=== PATIENT | male | born 1990 | race Caucasian/White ===

== ENCOUNTER → 2022-02-21 | Outpatient (CLI) | payer SELFPAY ==
[2022-02-21 12:46] LABS: Absolute Lymphocyte Count 1.58 X10^3/uL (0.83-4.51); Absolute Neutrophil Count 4.1 X10^3/uL (2.0-7.7); Basophil# 0.03 X10^3/uL; Basophil% 0.5 % (0-1); Eosinophils% 3.1 % (0-5); Hematocrit 45.9 % (40-54); Hemoglobin 15.3 g/dL (13.0-16.5); Lymphocyte # 1.58 X10^3/ul (0.83-4.51); Lymphocyte % 24.6 % (19-41); Mean Corp Hgb Conc 33.3 g/dL (32-36); Mean Corpuscular Hgb 29.8 pg (27.0-32.0); Mean Corpuscular Volume 89.3 fL (80-94); Mean Platelet Vol. 9.6 fl (6.2-12.0); Monocyte% 7.8 % (0-10); NRBC Flagged by Analyzer 0 % (0-5); Neutrophil # 4.07 X10^3/uL (2.7-7.7); Neutrophil % 63.5 % (47-70); Platelet Count 261 K/mm3 (150-450); RBC Distribution Width CV 12.6 % (11.6-14.6); RBC Distribution Width SD 41.5 fl (35.1-43.9); Red Blood Count 5.14 M/mm3 (4.6-6.2); White Blood Count 6.4 K/mm3 (4.4-11.0)
[2022-02-21 13:06] LABS: Hemoglobin A1c 5.1 % (3.8-5.6)
[2022-02-21 13:10] LABS: ALB/GLOB Ratio 1.3 RATIO (0.9-2.4); AST(SGOT) 19 U/L (15-37); Alanine Aminotransfer ALT/SGPT 37 U/L (16-61); Albumin, Serum 4.4 g/dL (3.2-5.0); Alkaline Phosphatase 76 U/L (45-117); Anion Gap 6 (5-15); BUN 12 mg/dL (7-18); BUN/Creat Ratio 12.5 RATIO (10-20); Calcium,Total 9.4 mg/dL (8.5-10.1); Chloride 105 mmol/L (98-107); Cholesterol 218 mg/dL (200); Creatinine, Serum 0.96 mg/dL (0.70-1.30); EST Glomerular Filtration Rate 96 mL/min (>60); Est Glom Filt Rate - Afr Amer 116 mL/min (>60); Globulin 3.3 g/dL (2.2-4.2); Glucose 86 mg/dL (74-106); High Density Lipoprotein 47 mg/dL; Potassium 4.4 mmol/L (3.5-5.1); Protein, Total 7.7 g/dL (6.4-8.2); Sodium Level 140 mmol/L (136-145); Triglycerides 132 mg/dL; Very Low Density Lipoprotein 26 mg/dL (5-40)
== END | disposition home or self-care (01) ==
PROVIDERS: Internal Medicine
DX: Z00.00 Encounter for general adult medical examination without abnormal findings (principal); Z13.220 Encounter for screening for lipoid disorders; Z13.1 Encounter for screening for diabetes mellitus
CPT/HCPCS: 36415; 80053; 80061; 83036; 85025

== ENCOUNTER → 2024-06-07 | Outpatient (CLI) | payer BC, SELFPAY | END | disposition home or self-care (01) | LOC: LABSPEC 12:55 | PROVIDERS: PCP Internal Medicine; Referring Provider Physician Assistant Surgical; Visit Provider Physician Assistant Surgical | DX: R30.0 Dysuria (principal) | CPT/HCPCS: 87086; 87088; 87186 ==

== ENCOUNTER → 2024-08-21 | Outpatient (CLI) | payer BC, SELFPAY ==
[2024-08-21 17:03] LABS: Hemoglobin A1c 5.4 % (<=5.6)
[2024-08-21 18:10] LABS: ALB/GLOB Ratio 1.8 RATIO (0.9-2.4); AST(SGOT) 38 U/L (<=37); Alanine Aminotransfer ALT/SGPT 51 U/L (<=46); Albumin, Serum 4.8 g/dL (3.5-5.0); Alkaline Phosphatase 77 U/L (40-129); Anion Gap 14 (5-15); BUN 9 mg/dL (4-19); BUN/Creat Ratio 9.3 RATIO (10-20); Calcium,Total 9.9 mg/dL (7.6-11.0); Chloride 100 mmol/L (98-108); Cholesterol 279 mg/dL (<=200); Creatinine, Serum 0.97 mg/dL (0.70-1.20); EST Glomerular Filtration Rate 105 (>60); Globulin 2.7 g/dL (2.2-4.2); Glucose 83 mg/dL (70-99); High Density Lipoprotein 44 mg/dL; Low Density Lipoprotein Calc. 185 mg/dL; Potassium 4.1 mmol/L (3.3-5.1); Protein, Total 7.5 g/dL (5.9-8.4); Sodium Level 137 mmol/L (133-145); Total Bilirubin 0.42 mg/dL (0.00-1.30); Triglycerides 250 mg/dL; Very Low Density Lipoprotein 50 mg/dL (5-40); cholesterol:hdl ratio screen 6.38
[2024-08-21 18:18] LABS: Vitamin B12 620 pg/mL (180-914); Vitamin D,25 Hydroxy 21.4 ng/mL (30-100)
[2024-08-23 05:07] LABS: Insulin Level 20.2 uIU/mL (2.6-24.9)
== END | disposition home or self-care (01) ==
LOC: BIMLAB 16:15
PROVIDERS: PCP Internal Medicine; Referring Provider Internal Medicine; Visit Provider Internal Medicine
DX: Z00.00 Encounter for general adult medical examination without abnormal findings (principal); E88.819 Insulin resistance, unspecified; R73.9 Hyperglycemia, unspecified; Z13.220 Encounter for screening for lipoid disorders; E53.8 Deficiency of other specified B group vitamins; E55.9 Vitamin D deficiency, unspecified
CPT/HCPCS: 36415; 80053; 80061; 82306; 82607; 83036; 83525; 84443

== ENCOUNTER 2024-09-24 17:30 | Outpatient (RCR) | payer BC, SELFPAY ==
--- NOTE | 2024-09-03 16:21 | HP.PTEVAL ---
Patient's Visit Information Visit Information Visit Information: CHUY CERVANTES is a 34 year old M referred to Physical Therapy by Dr. Krystin Jurado MD with a diagnosis of LOW BACK PAIN. 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 Patient has had lumbar pain for ~ 1 year. Patient symptoms have been more intermittent for the past year 3-4 week worse past several months. Seen DR recommend PT and no imaging or medication. Aggravating lifting ,bending sitting. Alleviating walking/standing. c/o parestehesia/tingling in back. Coughing/sneezing-. Bowel/bladder- . Sleeping good at night . Patient was active working out but as late. No injury and/or trauma. Patient condition affects QOL and function with recurrent symptoms. To eliminate symptoms. 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 Back: Pain Intensity (Out of 10): 1 Pain Intensity Range: 10 Objective Objective: POSTURE: mild forward posture GAIT: reciprocal pattern NEURO: denies paresthesia/tingling ,reflexes L3-4,L4-5,L5-S1 1/3 PALAPTION: UNREMARKABLE FLEXABILITY: min tight LUMBAR ROM: flexion min loss ,extension min loss ,side glides min loss MMT: quads/hams/hip/ankle 5/5 Special Tests L/S Slump test left side: Negative L/S Slump test right side: Negative L/S Left Straight Leg Raise: Negative L/S Right Straight Leg Raise: Negative Lumbar Standing: Flexion - Mechanical Response: No effect Lumbar Standing: Flexion - Symptoms During Testing: Increases Lumbar Standing: Flexion - Symptoms After Testing: No worse Lumbar Standing: Extension - Mechanical Response: No effect Lumbar Standing: Extension - Symptoms During Testing: Increases Lumbar Standing: Extension - Symptoms After Testing: No worse Lumbar Standing: Right Side Glides - Mechanical Response: No effect Lumbar Standing: Right Side Buckner - Symptoms During Testing: No effect Lumbar Standing: Right Side Buckner - Symptoms After Testing: No effect Lumbar Standing: Left Side Buckner - Mechanical Response: No effect Lumbar Standing: Left Side Buckner - Symptoms During Testing: No effect Lumbar Standing: Left Side Buckner - Symptoms After Testing: No effect Lumbar Lying: Flexion - Mechanical Response: No effect Lumbar Lying: Flexion - Symptoms During Testing: No effect Lumbar Lying: Flexion - Symptoms After Testing: No effect Lumbar Lying: Extension - Mechanical Response: No effect Lumbar Lying: Extension - Symptoms During Testing: Decreases Lumbar Lying: Extension - Symptoms After Testing: Better Balance/Special Test Scores Oswestry Low Back Score: 21 Goals Goal 1:: Patient to be I with HEP for back Goal Time Frame: 4-6 Weeks Goal 2:: Patient to decrease back pain by 75% to improve function and job demands Goal Time Frame: 4-6 Weeks Goal 3:: Patient to improve lumbar ROM for function of recovery for lifting Goal Time Frame: 4-6 Weeks Goal 4:: Patient to improve back oswestry by 5 points to improve QOL and function Goal Time Frame: 4-6 Weeks Rehabilitation Potential Physical Therapy Diagnosis: This patient has central symmetrical due disc derangement with pain worse with flexion and better with correction of posture and extension thus benefit from skilled PT Rehabilitation Potential: Fair Anticipated Interventions Patient/Client Instruction: Educate patient on: Condition and Plan of Care For the Purpose of:: To decrease pain, To increase ROM, To improve muscle performance and motor function, To increase tolerance to activity/condition/position, To improve performance and independence with ADL's, To improve ability of physical actions for home/community/work/leisure, To improve gait and locomotor functions and To improve tolerance to ADL's Therapeutic Exercise to Include: Strength training, Body mechanics, Postural training, Flexibilty training and Dynamic Lumbar Stabilization For the Purpose of:: To decrease pain, To increase ROM, To improve muscle performance and motor function, To increase tolerance to activity/condition/position, To improve performance and independence with ADL's, To improve health of tissue, To decrease soft tissue restriction and To increase flexibility/ROM Manual Therapy Techniques to Include: Mobilization Comment: LUMBAR For the Purpose of:: To decrease pain, To increase ROM, To improve health of tissue and To decrease soft tissue restriction TENS: Yes IF ES: Yes Cryotherapy (ice pack, ice massage): Yes Thermo therapy (hot pack): Yes Ultrasound (thermal/non thermal): Yes For the Purpose of:: To decrease pain and To increase ROM Text: Thank you for the opportunity to evaluate your patient. For Medicare and Medicare HMO plans, please review the plan of care and approve it. It will need to be FAXED BACK to us at [phone] for Medicare purposes. For Medicare only, by signing this I certify the plan of care. Please let me know if there are questions or concerns regarding this plan of care. Physician Signature: Date:
--- NOTE | 2025-02-10 18:22 | HP.PT.NRP ---
Patient Information Patient Information: CHUY CERVANTES was seen in my office for initial evaluation on 09/03/24. The following Plan of Care was established for this patient: POC Established Initial Frequency: 2x /Week Initial Duration: 4 Weeks Anticipated Interventions Patient/Client Instruction: Educate patient on: Condition and Plan of Care For the Purpose of:: To decrease pain, To increase ROM, To improve muscle performance and motor function, To increase tolerance to activity/condition/position, To improve performance and independence with ADL's, To improve ability of physical actions for home/community/work/leisure, To improve gait and locomotor functions and To improve tolerance to ADL's Therapeutic Exercise to Include: Strength training, Body mechanics, Postural training, Flexibilty training and Dynamic Lumbar Stabilization For the Purpose of:: To decrease pain, To increase ROM, To improve muscle performance and motor function, To increase tolerance to activity/condition/position, To improve performance and independence with ADL's, To improve health of tissue, To decrease soft tissue restriction and To increase flexibility/ROM Manual Therapy Techniques to Include: Mobilization Comment: LUMBAR For the Purpose of:: To decrease pain, To increase ROM, To improve health of tissue and To decrease soft tissue restriction TENS: Yes IF ES: Yes Cryotherapy (ice pack, ice massage): Yes Thermo therapy (hot pack): Yes Ultrasound (thermal/non thermal): Yes For the Purpose of:: To decrease pain and To increase ROM Last Seen Last Seen: This patient was last seen in our office . Pertinent comments regarding their Physical therapy will appear below: Patient seen for PT for lumbar pain thus is d/c to HEP doing well At this point I will be discontinuing this patient from physical therapy. I would be happy to see this patient again in the future if found appropriate by the physician. Thank you! David Avalos, PT, Cert MDT, OCS Balance/Gait/Functional tests Balance/Special Test Scores Oswestry Low Back Score: 21
== END 2024-09-24 19:00 | disposition home or self-care (01) ==
LOC: PT 17:30
PROVIDERS: PCP Internal Medicine; Referring Provider Internal Medicine; Visit Provider Internal Medicine
DX: M54.50 Low back pain, unspecified (principal)
CPT/HCPCS: 97110; 97162

== ENCOUNTER → 2025-02-11 | Outpatient (CLI) | payer BC, SELFPAY ==
[2025-02-11 18:55] LABS: AST(SGOT) 33 U/L (<=37); Alanine Aminotransfer ALT/SGPT 45 U/L (<=46); Albumin, Serum 4.8 g/dL (3.5-5.0); Alkaline Phosphatase 76 U/L (40-129); Anion Gap 14 (5-15); BUN 12 mg/dL (4-19); BUN/Creat Ratio 10.9 RATIO (10-20); Calcium,Total 9.8 mg/dL (7.6-11.0); Carbon Dioxide 23.7 mmol/L (21.0-32.0); Chloride 101 mmol/L (98-108); Cholesterol 266 mg/dL (<=200); Globulin 2.5 g/dL (2.2-4.2); Glucose 84 mg/dL (70-99); Low Density Lipoprotein Calc. 177 mg/dL; Potassium 3.8 mmol/L (3.3-5.1); Triglycerides 236 mg/dL; Very Low Density Lipoprotein 47 mg/dL (5-40); Vitamin D,25 Hydroxy 22.4 ng/mL (30-100); cholesterol:hdl ratio screen 6.29
== END | disposition home or self-care (01) ==
LOC: BIMLAB 13:36
PROVIDERS: PCP Internal Medicine; Referring Provider Internal Medicine; Visit Provider Internal Medicine
DX: E88.819 Insulin resistance, unspecified (principal); E55.9 Vitamin D deficiency, unspecified; Z13.220 Encounter for screening for lipoid disorders; R73.9 Hyperglycemia, unspecified
CPT/HCPCS: 36415; 80053; 80061; 82306; 83036

== ENCOUNTER → 2025-05-09 | Outpatient (CLI) | payer BC, SELFPAY ==
--- OUTSIDE RECORDS SUMMARY | 2025-05-09 16:23 | XMS RPT_ITS | CCD ---
Author Organization [facility] Care Team Providers Care Retort Condenser Attendant Name Role Phone Dr. Krystin Jurado Attending Provider Rhiannon JIANG, Dr. Mcclelland Primary Care Provider Rhiannon JIANG, Dr. Mcclelland Referring Provider Kade Gill Attending Provider [phone] Kade Gill Referring Provider Rhiannon JIANG, Dr. Mcclelland Attending Provider Rhiannon JIANG, Dr. Mcclelland Primary Care Physician Rhiannon JIANG, Dr. Mcclelland Attending Physician Rhiannon JIANG, Dr. Mcclelland Referring Provider Krystin Jurado Primary Care Unavailable Krystin Jurado Attending Unavailable Rhiannon, Krystin Referring Unavailable Rhiannon, Krystin Primary Care Unavailable RhiannonKrystin Attending Unavailable Rhiannno, Krystin Referring Unavailable Rhiannon, Krystin Primary Care Unavailable Kade Gill Attending Unavailable Kade Gill Referring Unavailable Krystin Jurado Attending Unavailable Rhiannon, Krystin Referring Unavailable Rhiannon, Krystin Primary Care Unavailable Rhiannon, Krystin Primary Care Unavailable Kade Gill Attending Unavailable Rhiannon, Krystin Referring Unavailable Rhiannon, Krystin Primary Care Unavailable Krystin Jurado Attending Unavailable Rhiannon, Krystin Primary Care Unavailable Krystin Jurado Attending Unavailable Medications Current Medications Medication Drug Class(es) Dates Sig (Normalized) Sig (Original) Nowata (Nk) (3 sources) Start: 08-21-2024 Nowata (Nk) A ctive August 21, 2024 12:00am Completed/Discontinued Medications Medication Drug Class(es) Dates Sig (Normalized) Sig (Original) ciprofloxacin 500 mg oral tablet (3 sources) Quinolone Antimicrobial Start: 06-07-2024 End: 06-14-2024 take 1 tablet by mouth every twelve hours Ciprofloxacin Hcl (Cipro) 500 mg tablet Discontinued 500 mg PO Q12H 14 7 0 June 07, 2024 1:00am June 13, 2024 1:00am June 14, 2024 1:11am Problems Active Problems Problem Classification Problem Date Documented Da te Episodic/Chronic Other nutritional; endocrine; and metabolic disorders (4 sources) Insulin resistance; Translations: [Insulin resistance] 08-21-2024 Chronic Spondylosis; intervertebral disc disorders; other back problems (5 sources) Low back pain; Translations: [Low back pain] Episodic Unclassified (1 source) M54.50 - Low back pain, unspecified Unclassified (1 source) Insulin resistance, unspecified; Translations: [Insulin resistance, unspecified] Onset: 02-19-2025 Past or Other Problems Problem Classification Problem Date Documented Da te Episodic/Chronic Genitourinary symptoms and ill-defined conditions (5 sources) Dysuria; Translations: [Dysuria] Onset: 07-03-2024 06-07-2024 Episodic Results Test Name Value Interpretation Reference Range Facility Anion gap in Serum or Plasma Ordered By: Krystin Jurado on 02-11-2025 Anion gap [Moles/Vol] 14 mmol/L 5-15 [facility] BUN/creatinine ratioOrdered By: Krystin Jurado on 02-11-2025 Urea nitrogen/Creatinine [Mass ratio] 10.9 mg/mg 10-20 [facility] Bilirubin, totalOrdered By: Krystin Jurado on 02-11-2025 Bilirubin [Mass/Vol] 0.54 mg/dL 0.00-1.30 [facility] Calculated very low density lipoprotein (VLDL) cholesterol measurementOrdered By: Krystin Jurado on 02-11-2025 Calculated very low density lipoprotein (VLDL) cholesterol measurement 47 mg/dL High 5-40 [facility] Carbon dioxide, total [Moles /volume] in Central venous bloodOrdered By: Krystin Jurado on 02-11-2025 CO2 [Moles/Vol] 23.7 mmol/L 21.0-32.0 [facility] Chloride assayOrdered By: Natasha Jurado on 02-11-2025 Chloride [Moles/Vol] 101 mmol/L 98-108 [facility] Comprehensive Metabolic Prof ilon 02-11-2025 Albumin [Mass/Vol] 4.8 g/dL Normal 3.5-5.0 [facility] Comment on above: Performed By: #### L 506.1001, L500.4050, L501.9985, L500.4100 ####[facility] [address] [place], [address] Albumin/Globulin [Mass ratio] 1.9 {ratio} Normal 0.9-2.4 [facility] Comment on above: Performed By: #### L 506.1001, L500.4050, L501.9985, L500.4100 ####[facility] [address] [place], [address] ALK PHOS 76 U/L Normal 40-129 [facility] Comment on above: Performed By: #### L 506.1001, L500.4050, L501.9985, L500.4100 ####[facility] [address] [place], [address] ALT [Catalytic activity/Vol] 45 U/L Normal <=46 [facility] Comment on above: Performed By: #### L 506.1001, L500.4050, L501.9985, L500.4100 ####[facility] [address] [place], [address] AST [Catalytic activity/Vol] 33 U/L Normal <=37 [facility] Comment on above: Performed By: #### L 506.1001, L500.4050, L501.9985, L500.4100 ####[facility] [address] [place], [address] Bilirubin [Mass/Vol] 0.54 mg/dL Normal 0.00-1.30 [facility] Comment on above: Performed By: #### L 506.1001, L500.4050, L501.9985, L500.4100 ####[facility] [address] [place], [address] BUN/CRE 10.9 RATIO Normal 10-20 [facility] Comment on above: Performed By: #### L 506.1001, L500.4050, L501.9985, L500.4100 ####[facility] [address] [place], [address] Calcium [Mass/Vol] 9.8 mg/dL Normal 7.6-11.0 [facility] Comment on above: Performed By: #### L 506.1001, L500.4050, L501.9985, L500.4100 ####[facility] [address] [place], [address] Chloride [Moles/Vol] 101 mmol/L Normal 98-108 [facility] Comment on above: Performed By: #### L 506.1001, L500.4050, L501.9985, L500.4100 ####[facility] [address] [place], [address] CO2 [Moles/Vol] 23.7 mmol/L Normal 21.0-32.0 [facility] Comment on above: Performed By: #### L 506.1001, L500.4050, L501.9985, L500.4100 ####[facility] [address] [place], [address] Creatinine [Mass/Vol] 1.07 mg/dL Normal 0.70-1.20 [facility] Comment on above: Performed By: #### L 506.1001, L500.4050, L501.9985, L500.4100 ####[facility] [address] [place], [address] GAP 14 Normal 5-15 [facility] Comment on above: Performed By: #### L 506.1001, L500.4050, L501.9985, L500.4100 ####[facility] [address] [place], [address] GFR/1.73 sq M.predicted among non-blacks MDRD (S/P/Bld) [Vol rate/Area] 93 mL/min/{1.73_m2} Normal >60 [facility] Comment on above: Result Comment: mL/m in/1.73m2 CKD-EPI Creatinine Equation (2020) Performed By: #### L 506.1001, L500.4050, L501.9985, L500.4100 ####[facility] [address] [place], [address] Globulin (S) [Mass/Vol] 2.5 g/dL Normal 2.2-4.2 [facility] Comment on above: Performed By: #### L 506.1001, L500.4050, L501.9985, L500.4100 ####[facility] [address] [place], [address] Glucose [Mass/Vol] 84 mg/dL Normal 70-99 [facility] Comment on above: Performed By: #### L 506.1001, L500.4050, L501.9985, L500.4100 ####[facility] [address] [place], [address] Potassium [Moles/Vol] 3.8 mmol/L Normal 3.3-5.1 [facility] Comment on above: Performed By: #### L 506.1001, L500.4050, L501.9985, L500.4100 ####[facility] [address] [place], [address] Sodium [Moles/Vol] 138 mmol/L Normal 133-145 [facility] Comment on above: Performed By: #### L 506.1001, L500.4050, L501.9985, L500.4100 ####[facility] [address] [place], [address] T PROT 7.3 g/dL Normal 5.9-8.4 [facility] Comment on above: Performed By: #### L 506.1001, L500.4050, L501.9985, L500.4100 ####[facility] [address] [place], [address] Urea nitrogen [Mass/Vol] 12 mg/dL Normal 4-19 [facility] Comment on above: Performed By: #### L 506.1001, L500.4050, L501.9985, L500.4100 ####[facility] [address] [place], [address] Glomerular filtration rate ( GFR) estimation/1.73 sq m using serum, plasma, or whole bOrdered By: Krystin Jurado on 02-11-2025 GFR/1.73 sq M.predicted among non-blacks MDRD (S/P/Bld) [Vol rate/Area] 93 mL/min/{1.73_m2} >60 [facility] Comment on above: mL/min/1.73m2 CKD-EP I Creatinine Equation (2020) Hemoglobin A1con 02-11-2025 HbA1c (Bld) [Mass fraction] 5.1 % Normal <=5.6 [facility] Comment on above: Result Comment: Norm al < 5.7 % Prediabetic 5.7 - 6.4 % Diabetic >or= 6.5 % Please note range changes. Performed By: #### L 506.1001, L500.4050, L501.9985, L500.4100 ####[facility] [address] [place], [address] Hemoglobin A1c percentageOrd ered By: Krystin Jurado on 02-11-2025 HbA1c (Bld) [Mass fraction] 5.1 % <5.7 [facility] Comment on above: Normal < 5.7 % Predi abetic 5.7 - 6.4 % Diabetic >or= 6.5 % Please note range changes. LDL calc ser/plasOrdered By: Krystin Jurado on 02-11-2025 Cholesterol in LDL [Mass/Vol] 177 mg/dL [facility] Comment on above: Ccahbfwxaq=020-871 m g/dL & Higher Uvkz=571 mg/dL or greaterFriedwald Equation for LDL-C Laboratory - Chemistry and C hemistry - challengeOrdered By: Krystin Jurado on 02-11-2025 AST [Catalytic activity/Vol] 33 U/L <38 [facility] Lipid Profileon 02-11-2025 CHOL:HDL 6.29 Normal [facility] Comment on above: Performed By: #### L 506.1001, L500.4050, L501.9985, L500.4100 ####[facility] [address] [place], [address] Cholesterol [Mass/Vol] 266 mg/dL High <=200 [facility] Comment on above: Result Comment: Chol esterol level, Desirable <200 mg/dL Borderline high cholesterol 200-239 mg/dL High cholesterol >=240 mg/dL Recommendations of the NCEP Adult Treatment Panel for the following risk-cutoff thresholds for the [place] Citizen [place] population. Performed By: #### L 506.1001, L500.4050, L501.9985, L500.4100 ####[facility] [address] [place], [address] Cholesterol in HDL [Mass/Vol] 42 mg/dL Normal [facility] Comment on above: Result Comment: Lina onal Cholesterol Education Program (NCEP) guidelines: <40 mg/dL: Low HDL-cholesterol (major risk factor for CHD) >= 60 mg/dL: High HDL-cholesterol (negative risk factor for CHD) HDL-cholesterol is affected by a number of factors, e.g. smoking, exercise, hormones, sex and age. Performed By: #### L 506.1001, L500.4050, L501.9985, L500.4100 ####[facility] [address] [place], [address] Cholesterol in LDL [Mass/Vol] 177 mg/dL Normal [facility] Comment on above: Result Comment: Bord afclcu=307-233 mg/dL Higher Unjb=278 mg/dL or greater Friedwald Equation for LDL-C Performed By: #### L 506.1001, L500.4050, L501.9985, L500.4100 ####[facility] [address] [place], [address] Cholesterol in VLDL [Mass/Vol] 47 mg/dL High 5-40 [facility] Comment on above: Performed By: #### L 506.1001, L500.4050, L501.9985, L500.4100 ####[facility] [address] [place], [address] Triglyceride [Mass/Vol] 236 mg/dL High [facility] Comment on above: Result Comment: The drugs N-Acetylcysteine and Metamizole may falsely depress this assay. Normal range: <150 mg/dL Borderline High: 150-199 mg/dL High: 200-499 mg/dL Very High: >500 mg/dL Performed By: #### L 506.1001, L500.4050, L501.9985, L500.4100 ####[facility] [address] [place], [address] Potassium measurement (mass/ volume)Ordered By: Krystin Jurado on 02-11-2025 Potassium (Unsp spec) [Mass/Vol] 3.8 mmol/L 3.3-5.1 [facility] Screening total cholesterol/ high density lipoprotein (HDL) cholesterol ratioOrdered By: Krystin Jurado on 02-11-2025 Cholesterol.total/Najma sterol in HDL [Mass ratio] 6.29 {ratio} [facility] Serum creatinine measurement (mass/volume)Ordered By: Krystin Jurado on 02-11-2025 Creatinine [Mass/Vol] 1.07 mg/dL 0.70-1.20 [facility] Serum globulin measurementOr dered By: Krystin Jurado on 02-11-2025 Globulin (S) [Mass/Vol] 2.5 g/dL 2.2-4.2 [facility] Serum glucose measurement (m ass/volume)Ordered By: Krystin Jurado on 02-11-2025 Glucose [Mass/Vol] 84 mg/dL 70-99 [facility] Serum or plasma alanine person otransferase (ALT) measurementOrdered By: Krystin Jurado on 02-11-2025 ALT [Catalytic activity/Vol] 45 U/L <47 [facility] Serum or plasma albumin tobin urement (mass/volume)Ordered By: Krystin Jurado on 02-11-2025 Albumin [Mass/Vol] 4.8 g/dL 3.5-5.0 [facility] Serum or plasma albumin/glob ulin mass ratioOrdered By: Krystin Jurado on 02-11-2025 Albumin/Globulin [Mass ratio] 1.9 {ratio} 0.9-2.4 [facility] Serum or plasma alkaline patrick sphatase measurementOrdered By: Krystin Jurado on 02-11-2025 ALP [Catalytic activity/Vol] 76 U/L 40-129 [facility] Serum or plasma calcium tobin urement (mass/volume)Ordered By: Krystin Jurado on 02-11-2025 Calcium [Mass/Vol] 9.8 mg/dL 7.6-11.0 [facility] Serum or plasma cholesterol in HDL measurement (mass/volume)Ordered By: Krystin Jurado on 02-11-2025 Cholesterol in HDL [Mass/Vol] 42 mg/dL >40 [facility] Comment on above: National Cholesterol Education Program (NCEP) guidelines:<40 mg/dL: Low HDL-cholesterol (major risk factor for CHD)>= 60 mg/dL: High HDL-cholesterol (negative risk factor for CHD)HDL-cholesterol is affected by a number of factors, e.g. smoking, exercise, hormones, sex and age. Serum or plasma cholesterol measurement (mass/volume)Ordered By: Krystin Jurado on 02-11-2025 Cholesterol [Mass/Vol] 266 mg/dL High <201 [facility] Comment on above: Cholesterol level, D esirable <200 mg/dLBorderline high cholesterol 200-239 mg/dLHigh cholesterol >=240 mg/dLRecommendations of the NCEP Adult Treatment Panel for the following risk-cutoff thresholds for the [place] Citizen [place] population. Serum or plasma urea nitroge n measurement (mass/volume)Ordered By: Krystin Jurado on 02-11-2025 Urea nitrogen [Mass/Vol] 12 mg/dL 4-19 [facility] Sodium levelOrdered By: Erin Jurado on 02-11-2025 Sodium [Moles/Vol] 138 mmol/L 133-145 [facility] Total proteinOrdered By: Kailyn Jurado on 02-11-2025 Protein [Mass/Vol] 7.3 g/dL 5.9-8.4 [facility] Triglycerides measurementOrd ered By: Krystin Jurado on 02-11-2025 Triglyceride [Mass/Vol] 236 mg/dL High <199 [facility] Comment on above: The drugs N-Acetylcy steine and Metamizole may falsely depress this assay. Normal range: <150 mg/dLBorderline High: 150-199 mg/dLHigh: 200-499 mg/dLVery High: >500 mg/dL Vitamin D,25 Hydroxyon 02-11 Vitamin D 25-OH 22.4 ng/mL Low 30-100 [facility] Comment on above: Result Comment: Stefany min D Status Deficiency: <20 ng/mL (50nmol/L) Insufficiency: 20-30 ng/mL (50-75 nmol/L) Sufficiency: 30-100 ng/mL (75-250 nmol/L) Toxicity: >100 ng/mL (>250 nmol/L) Performed By: #### L 506.1001, L500.4050, L501.9985, L500.4100 ####[facility] [address] [place], [address] Inital Evaluation (1) - PTon 09-03-2024 Inital Evaluation (1) - PT [facility] Physical Therapy [address] [place] [address] / REHABILITATION SERVICES INITIAL EVALUATION MR#: [id number] Acct: [id number] Name: CHUY CERVANTES Rep #: [id number] : 1990 34 From: David Avalos PT, Fabiana. T, OCS Referring Dr.: Dr. Krystin Jurado MD Status: R EG RCR Insurance: [facility] PACKAGE PLAN Patient's Visit Information Visit Information Visit Information: CHUY CERVANTES is a 34 year old M referred to Physical Therapy by Dr. Krystin Jurado MD with a diagnosis of LOW BACK PAIN. Date of Evaluation: 09/03/24 Physical Therapist: David Avalos PT, Cert T, OCS Visit Plan Frequency: 2x /Week Duration: 4 Weeks Plan: PT INTERVENTIONS EMERALD EX'S ( PROGRESSION OF FORCES) ,MANUAL THERAPY ( MOBILIZATION) ,PROGRESS TO DLS ,POSTURAL EX'S AND BDY MECHANICS Subjective Subjective: This 34 y/o male presents to physical therapy with lumbar pain. Patient has had lumbar pain for 1 year. Patient symptoms have been more intermittent for the past year 3-4 week worse past several months. Seen DR recommend PT and no imaging or medication. Aggravating lifting ,bending sitting. Alleviating walking/standing. c/o parestehesia/tingling in back. Coughing/sneezing-. Bowel/bladder- . Sleeping good at night . Patient was active working out but as late. No injury and/or trauma. Patient condition affects QOL and function with recurrent symptoms. To eliminate symptoms. SOCIAL: single VOCATION: [employer] Pain Bilateral Back: Pain Intensity (Out of 10): 1 Pain Intensity Range: 10 Objective Objective: POSTURE: mild forward posture GAIT: reciprocal pattern NEURO: denies paresthesia/tingling ,reflexes L3-4,L4-5,L5-S1 1/3 PALAPTION: UNREMARKABLE FLEXABILITY: min tight LUMBAR ROM: flexion min loss ,extension min loss ,side glides min loss MMT: quads/hams/hip/ankle 5/5 Special Tests L/S Slump test left side: Negative L/S Slump test right side: Negative L/S Left Straight Leg Raise: Negative L/S Right Straight Leg Raise: Negative Lumbar Standing: Flexion - Mechanical Response: No effect Lumbar Standing: Flexion - Symptoms During Testing: Increases Lumbar Standing: Flexion - Symptoms After Testing: No worse Lumbar Standing: Extension - Mechanical Response: No effect Lumbar Standing: Extension - Symptoms During Testing: Increases Lumbar Standing: Extension - Symptoms After Testing: No worse Lumbar Standing: Right Side Glides - Mechanical Response: No effect Lumbar Standing: Right Side Vail - Symptoms During Testing: No effect Lumbar Standing: Right Side Vail - Symptoms After Testing: No effect Lumbar Standing: Left Side Vail - Mechanical Response: No effect Lumbar Standing: Left Side Vail - Symptoms During Testing: No effect Lumbar Standing: Left Side Vail - Symptoms After Testing: No effect Lumbar Lying: Flexion - Mechanical Response: No effect Lumbar Lying: Flexion - Symptoms During Testing: No effect Lumbar Lying: Flexion - Symptoms After Testing: No effect Lumbar Lying: Extension - Mechanical Response: No effect Lumbar Lying: Extension - Symptoms During Testing: Decreases Lumbar Lying: Extension - Symptoms After Testing: Better Balance/Special Test Scores Oswestry Low Back Score: 21 Goals Goal 1:: Patient to be I with HEP for back Goal Time Frame: 4-6 Weeks Goal 2:: Patient to decrease back pain by 75% to improve function and job demands Goal Time Frame: 4-6 Weeks Goal 3:: Patient to improve lumbar ROM for function of recovery for lifting Goal Time Frame: 4-6 Weeks Goal 4:: Patient to improve back oswestry by 5 points to improve QOL and function Goal Time Frame: 4-6 Weeks Rehabilitation Potential Physical Therapy Diagnosis: This patient has central symmetrical due disc derangement with pain worse with flexion and better with correction of posture and extension thus benefit from skilled PT Rehabilitation Potential: Fair Anticipated Interventions Patient/Client Instruction: Educate patient on: Condition and Plan of Care For the Purpose of:: To decrease pain, To increase ROM, To improve muscle performance and motor function, To increase tolerance to activity/condition/po sition, To improve performance and independence with ADL's, To improve ability of physical actions for home/community/work/l eisure, To improve gait and locomotor functions and To improve tolerance to ADL's Therapeutic Exercise to Include: Strength training, Body mechanics, Postural training, Flexibilty training and Dynamic Lumbar Stabilization For the Purpose of:: To decrease pain, To increase ROM, To improve muscle performance and motor function, To increase tolerance to activity/condition/po sition, To improve performance and independence with ADL's, To improve health of tissue, To decrease soft tissue restriction and To increase flexibility/ROM (more content not included)... Normal [facility] Insulin Levelon 08-23-2024 INSULIN,FASTING 20.2 uIU/mL Normal 2.6-24.9 [facility] Comment on above: Result Comment: Perf ormed at: - [facility] [place] [id number] [place], [place] [id number] Laser Beam Trim Operator: Duran Berrios PhD, Phone: [phone] Performed By: #### L 500.4050, L501.9985, L3300.3500, L506.1001, L503.0106, L501.9520, L500.4100 ####[facility] [address] [place], [address] Anion gap in Serum or Plasma Ordered By: Krystin Jurado on 08-21-2024 Anion gap [Moles/Vol] 14 mmol/L 5-15 [facility] BUN/creatinine ratioOrdered By: Krystin Jurado on 08-21-2024 Urea nitrogen/Creatinine [Mass ratio] 9.3 mg/mg Low 10-20 [facility] Bilirubin, totalOrdered By: Krystin Jurado on 08-21-2024 Bilirubin [Mass/Vol] 0.42 mg/dL 0.00-1.30 [facility] Calculated very low density lipoprotein (VLDL) cholesterol measurementOrdered By: Krystin Jurado on 08-21-2024 VLDL Cholesterol 50 mg/dL High 5-40 [facility] Carbon dioxide, total [Moles /volume] in Central venous bloodOrdered By: Krystin Jurado on 08-21-2024 CO2 [Moles/Vol] 23.0 mmol/L 21.0-32.0 [facility] Chloride assayOrdered By: Natasha Jurado on 08-21-2024 Chloride [Moles/Vol] 100 mmol/L 98-108 [facility] Comprehensive Metabolic Prof ilon 08-21-2024 Albumin [Mass/Vol] 4.8 g/dL Normal 3.5-5.0 [facility] Comment on above: Performed By: #### L 500.4050, L501.9985, L3300.3500, L506.1001, L503.0106, L501.9520, L500.4100 #### [facility] [address] [place], [address] Albumin/Globulin [Mass ratio] 1.8 {ratio} Normal 0.9-2.4 [facility] Comment on above: Performed By: #### L 500.4050, L501.9985, L3300.3500, L506.1001, L503.0106, L501.9520, L500.4100 #### [facility] [address] [place], [address] ALK PHOS 77 U/L Normal 40-129 [facility] Comment on above: Performed By: #### L 500.4050, L501.9985, L3300.3500, L506.1001, L503.0106, L501.9520, L500.4100 #### [facility] [address] [place], [address] ALT [Catalytic activity/Vol] 51 U/L High <=46 [facility] Comment on above: Performed By: #### L 500.4050, L501.9985, L3300.3500, L506.1001, L503.0106, L501.9520, L500.4100 #### [facility] [address] [place], [address] AST [Catalytic activity/Vol] 38 U/L Normal <=37 [facility] Comment on above: Performed By: #### L 500.4050, L501.9985, L3300.3500, L506.1001, L503.0106, L501.9520, L500.4100 #### [facility] [address] [place], [address] Bilirubin [Mass/Vol] 0.42 mg/dL Normal 0.00-1.30 [facility] Comment on above: Performed By: #### L 500.4050, L501.9985, L3300.3500, L506.1001, L503.0106, L501.9520, L500.4100 #### [facility] [address] [place], [address] BUN/CRE 9.3 RATIO Low 10-20 [facility] Comment on above: Performed By: #### L 500.4050, L501.9985, L3300.3500, L506.1001, L503.0106, L501.9520, L500.4100 #### [facility] [address] [place], [address] Calcium [Mass/Vol] 9.9 mg/dL Normal 7.6-11.0 [facility] Comment on above: Performed By: #### L 500.4050, L501.9985, L3300.3500, L506.1001, L503.0106, L501.9520, L500.4100 #### [facility] [address] [place], [address] Chloride [Moles/Vol] 100 mmol/L Normal 98-108 [facility] Comment on above: Performed By: #### L 500.4050, L501.9985, L3300.3500, L506.1001, L503.0106, L501.9520, L500.4100 #### [facility] [address] [place], [address] CO2 [Moles/Vol] 23.0 mmol/L Normal 21.0-32.0 [facility] Comment on above: Performed By: #### L 500.4050, L501.9985, L3300.3500, L506.1001, L503.0106, L501.9520, L500.4100 #### [facility] [address] [place], [address] Creatinine [Mass/Vol] 0.97 mg/dL Normal 0.70-1.20 [facility] Comment on above: Performed By: #### L 500.4050, L501.9985, L3300.3500, L506.1001, L503.0106, L501.9520, L500.4100 #### [facility] [address] [place], [address] GAP 14 Normal 5-15 [facility] Comment on above: Performed By: #### L 500.4050, L501.9985, L3300.3500, L506.1001, L503.0106, L501.9520, L500.4100 #### [facility] [address] [place], [address] GFR/1.73 sq M.predicted among non-blacks MDRD (S/P/Bld) [Vol rate/Area] 105 mL/min/{1.73_m2} Normal >60 [facility] Comment on above: Result Comment: mL/m in/1.73m2 CKD-EPI Creatinine Equation (2020) Performed By: #### L 500.4050, L501.9985, L3300.3500, L506.1001, L503.0106, L501.9520, L500.4100 #### [facility] [address] [place], [address] Globulin (S) [Mass/Vol] 2.7 g/dL Normal 2.2-4.2 [facility] Comment on above: Performed By: #### L 500.4050, L501.9985, L3300.3500, L506.1001, L503.0106, L501.9520, L500.4100 #### [facility] [address] [place], [address] Glucose [Mass/Vol] 83 mg/dL Normal 70-99 [facility] Comment on above: Performed By: #### L 500.4050, L501.9985, L3300.3500, L506.1001, L503.0106, L501.9520, L500.4100 #### [facility] [address] [place], [address] Potassium [Moles/Vol] 4.1 mmol/L Normal 3.3-5.1 [facility] Comment on above: Performed By: #### L 500.4050, L501.9985, L3300.3500, L506.1001, L503.0106, L501.9520, L500.4100 #### [facility] [address] [place], [address] Sodium [Moles/Vol] 137 mmol/L Normal 133-145 [facility] Comment on above: Performed By: #### L 500.4050, L501.9985, L3300.3500, L506.1001, L503.0106, L501.9520, L500.4100 #### [facility] [address] [place], [address] T PROT 7.5 g/dL Normal 5.9-8.4 [facility] Comment on above: Performed By: #### L 500.4050, L501.9985, L3300.3500, L506.1001, L503.0106, L501.9520, L500.4100 #### [facility] [address] [place], [address] Urea nitrogen [Mass/Vol] 9 mg/dL Normal 4-19 [facility] Comment on above: Performed By: #### L 500.4050, L501.9985, L3300.3500, L506.1001, L503.0106, L501.9520, L500.4100 #### [facility] [address] [place], [address] GFR/1.73 sq M.predicted bhavna g non-blacks MDRD (S/P/Bld) [Vol rate/Area]Ordered By: Krystin Jurado on 08-21-2024 Estimated GFR (MDRD) Non-Af Amer 105 >60 [facility] Comment on above: mL/min/1.73m2 CKD-EP I Creatinine Equation (2020) Hemoglobin A1con 08-21-2024 HbA1c (Bld) [Mass fraction] 5.4 % Low <=5.6 [facility] Comment on above: Performed By: #### L 500.4050, L501.9985, L3300.3500, L506.1001, L503.0106, L501.9520, L500.4100 #### [facility] [address] [place], [address] Hemoglobin A1c percentageOrd ered By: Krystin Jurado on 08-21-2024 HbA1c (Bld) [Mass fraction] 5.4 % Low >5.7 [facility] Insulin [Mass/Vol]Ordered By : Krystin Jurado on 08-21-2024 Insulin Level 20.2 uIU/mL 2.6-24.9 [facility] Comment on above: Performed at: - [facility] [address] [id number] Director: Duran Berrios PhD, Phone: [phone] l503.4363on 08-21-2024 Cobalamin (Vitamin B12) [Mass/Vol] 620 pg/mL Normal 180-914 [facility] Comment on above: Performed By: #### L 500.4050, L501.9985, L3300.3500, L506.1001, L503.0106, L501.9520, L500.4100 #### [facility] [address] [place], [place], [id number] L506.1001on 08-21-2024 Vitamin D 25-OH 21.4 ng/mL Low 30-100 [facility] Comment on above: Result Comment: Stefany min D Status Deficiency: <20 ng/mL (50nmol/L) Insufficiency: 20-30 ng/mL (50-75 nmol/L) Sufficiency: 30-100 ng/mL (75-250 nmol/L) Toxicity: >100 ng/mL (>250 nmol/L) Performed By: #### L 500.4050, L501.9985, L3300.3500, L506.1001, L503.0106, L501.9520, L500.4100 #### [facility] [address] [place], [address] LDL calc ser/plasOrdered By: Krystin Jurado on 08-21-2024 LDL Cholesterol, Calculated 185 mg/dL [facility] Comment on above: Hohhusfzth=600-150 m g/dL & Higher Xsnn=261 mg/dL or greater Laboratory - Chemistry and C hemistry - challengeOrdered By: Krystin Jurado on 08-21-2024 AST [Catalytic activity/Vol] 38 U/L <38 [facility] Lipid Profileon 08-21-2024 CHOL:HDL 6.38 Normal [facility] Comment on above: Performed By: #### L 500.4050, L501.9985, L3300.3500, L506.1001, L503.0106, L501.9520, L500.4100 #### [facility] [address] [place], [address] Cholesterol [Mass/Vol] 279 mg/dL High <=200 [facility] Comment on above: Result Comment: Chol esterol level, Desirable <200 mg/dL Borderline high cholesterol 200-239 mg/dL High cholesterol >=240 mg/dL Recommendations of the NCEP Adult Treatment Panel for the following risk-cutoff thresholds for the [place] population. Performed By: #### L 500.4050, L501.9985, L3300.3500, L506.1001, L503.0106, L501.9520, L500.4100 #### [facility] [address] [place], [address] Cholesterol in HDL [Mass/Vol] 44 mg/dL Normal [facility] Comment on above: Result Comment: Lina onal Cholesterol Education Program (NCEP) guidelines: <40 mg/dL: Low HDL-cholesterol (major risk factor for CHD) >= 60 mg/dL: High HDL-cholesterol (negative risk factor for CHD) HDL-cholesterol is affected by a number of factors, e.g. smoking, exercise, hormones, sex and age. Performed By: #### L 500.4050, L501.9985, L3300.3500, L506.1001, L503.0106, L501.9520, L500.4100 #### [facility] [address] [place], [address] Cholesterol in LDL [Mass/Vol] 185 mg/dL Normal [facility] Comment on above: Result Comment: Bord zoecpb=901-253 mg/dL Higher Sway=491 mg/dL or greater Performed By: #### L 500.4050, L501.9985, L3300.3500, L506.1001, L503.0106, L501.9520, L500.4100 #### [facility] [address] [place], [address] Cholesterol in VLDL [Mass/Vol] 50 mg/dL High 5-40 [facility] Comment on above: Performed By: #### L 500.4050, L501.9985, L3300.3500, L506.1001, L503.0106, L501.9520, L500.4100 #### [facility] [address] [place], [address] Triglyceride [Mass/Vol] 250 mg/dL High [facility] Comment on above: Result Comment: The drugs N-Acetylcysteine and Metamizole may falsely depress this assay. Normal range: <150 mg/dL Borderline High: 150-199 mg/dL High: 200-499 mg/dL Very High: >500 mg/dL Performed By: #### L 500.4050, L501.9985, L3300.3500, L506.1001, L503.0106, L501.9520, L500.4100 #### [facility] [address] [place], [address] MR/BMS.IMBon 08-21-2024 MR/BMS.IMB [facility] [address] [place] [address] OFFICE VISIT Date of Service: 08/21/24 MR#: [id number] Acct: [id number] Name: CHUY CERVANTES Rep #: [id number] : 1990 Provider: Dr. 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 pets and animals: No leisure activities: sports and other history of recent travel: No sexually active: Yes Smoking Status: Never smoker alcohol intake: current details: beer or wine weekly substance use type: does not use diet: other well-balanced diet: daily or most days caffeine: Yes eating out: 1-3 times/week during the past year weight has: decreased > 10 lbs what type of physical activity do you participate in: weight training and other details: cardio seatbelt use: always do you feel safe at home: Yes HPI HPI Chief Complaint: Annual/Physical Details: CHUY CERVANTES, is a 34 M who presents to the office today for annual wellness checkup. 34-year-old gentleman who has no longstanding medical problems takes no routine long-term medications. He continues to work at [employer]. 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 He has been doing a regular regimented exercise regimen, not focusing on any 1 particular thing. No excessive amounts of weight lifting but more of a general regimen. He does some yoga as well at times. He has been trying to do some low back stretching exercises. He has had some intermittent sense of low back discomfort that comes and goes. He notes it a little bit more when he is working out but again he is not really doing any specific heavy stranding on the low back to his knowledge. He does not do squats. He notes a sense of intermittent numbness sensation into the very upper part of the lower buttocks. He does not have any perineal numbness or tingling, change in bowel or bladder continence, or any radicular symptoms in the lower extremities. Has seen chiropractic local but not recent. Usually however that was more for pain between the shoulder blades. He would have infrequent visits for that as needed. Overall tries eat a pretty good quality diet but self-admittedly at times likes sweets and consumes more of them then he probably should. Has family history of type 2 diabetes in his grandparents but his parents are healthy to his knowledge. He is originally from [place]. He does have at least some concern for possible blood sugar issues as sometimes he finds it a little more difficult as of late to gain focus when he is switching from one task to another, someone from the mental focus standpoint but also apparently a little bit from just visual standpoint switching from task to task. There he seems to be talking about actual visual focus. He does not have any major changes in his vision however. Review of systems per chart. No chest pain, chest tightness, shortness of breath wheeze cough or congestion reported. No fever or chills. Bowel movements have been regular he states. No dysuria, urgency or frequency. No other new specific concerning issues. Physical exam. Vital signs on chart. PERRLA. Sclera are clear. TMs are unremarkable with normal light reflexes. Canals are unremarkable. Posterior pharynx is unremarkable. Good dentition. No cervical or supraclavicular lymph nodes enlarged or tender. No clear thyromegaly. No thyroid nodules readily palpable. Lungs are without wheeze, rhonchi, rales. No E/A changes are heard. Heart is regular. Not tachycardic. No clear murmur, rub, or gallop is identified. The abdomen is soft. Bowel sounds are present. Nontender nondistended abdomen. No clear palpable masses in the abdomen. No significant leg (more content not included)... Normal [facility] Potassium (Unsp spec) [Mass/ Vol]Ordered By: Krystin Jurado on 08-21-2024 Potassium [Moles/Vol] 4.1 mmol/L 3.3-5.1 [facility] Screening total cholesterol/ high density lipoprotein (HDL) cholesterol ratioOrdered By: Krystin Jurado on 08-21-2024 Cholesterol.total/Najma sterol in HDL [Mass ratio] 6.38 {ratio} [facility] Serum creatinine measurement (mass/volume)Ordered By: Krystin Jurado on 08-21-2024 Creatinine [Mass/Vol] 0.97 mg/dL 0.70-1.20 [facility] Serum globulin measurementOr dered By: Krystin Jurado on 08-21-2024 Globulin (S) [Mass/Vol] 2.7 g/dL 2.2-4.2 [facility] Serum glucose measurement (m ass/volume)Ordered By: Krystin Jurado on 08-21-2024 Glucose [Mass/Vol] 83 mg/dL 70-99 [facility] Serum or plasma alanine person otransferase (ALT) measurementOrdered By: Krystin Jurado on 08-21-2024 ALT [Catalytic activity/Vol] 51 U/L High <47 [facility] Serum or plasma albumin tobin urement (mass/volume)Ordered By: Krystin Jurado on 08-21-2024 Albumin [Mass/Vol] 4.8 g/dL 3.5-5.0 [facility] Serum or plasma albumin/glob ulin mass ratioOrdered By: Krystin Jurado on 08-21-2024 Albumin/Globulin [Mass ratio] 1.8 {ratio} 0.9-2.4 [facility] Serum or plasma alkaline patrick sphatase measurementOrdered By: Krystin Jurado on 08-21-2024 ALP [Catalytic activity/Vol] 77 U/L 40-129 [facility] Serum or plasma calcium tobin urement (mass/volume)Ordered By: Krystin Jurado on 08-21-2024 Calcium [Mass/Vol] 9.9 mg/dL 7.6-11.0 [facility] Serum or plasma cholesterol in HDL measurement (mass/volume)Ordered By: Krystin Jurado on 08-21-2024 Cholesterol in HDL [Mass/Vol] 44 mg/dL >40 [facility] Comment on above: National Cholesterol Education Program (NCEP) guidelines:<40 mg/dL: Low HDL-cholesterol (major risk factor for CHD)>= 60 mg/dL: High HDL-cholesterol (negative risk factor for CHD)HDL-cholesterol is affected by a number of factors, e.g. smoking, exercise, hormones, sex and age. Serum or plasma cholesterol measurement (mass/volume)Ordered By: Krystin Jurado on 08-21-2024 Cholesterol [Mass/Vol] 279 mg/dL High <201 [facility] Comment on above: Cholesterol level, D esirable <200 mg/dLBorderline high cholesterol 200-239 mg/dLHigh cholesterol >=240 mg/dLRecommendations of the NCEP Adult Treatment Panel for the following risk-cutoff thresholds for the [place] population. Serum or plasma urea nitroge n measurement (mass/volume)Ordered By: Krystin Jurado on 08-21-2024 Urea nitrogen [Mass/Vol] 9 mg/dL 4-19 [facility] Sodium levelOrdered By: Erin Jurado on 08-21-2024 Sodium [Moles/Vol] 137 mmol/L 133-145 [facility] TSH DL <= 0.005 mIU/L QnOrde red By: Krystin Jurado on 08-21-2024 Thyroid Stimulating Hormone (TSH) 1.330 uIU/mL 0.300-4.200 [facility] Thyroid Stim Hormone (TSH)on 08-21-2024 TSH 1.330 uIU/mL Normal 0.300-4.200 [facility] Comment on above: Performed By: #### L 500.4050, L501.9985, L3300.3500, L506.1001, L503.0106, L501.9520, L500.4100 #### [facility] [address] [place], [address] Total proteinOrdered By: Kialyn Jurado on 08-21-2024 Protein [Mass/Vol] 7.5 g/dL 5.9-8.4 [facility] Triglycerides measurementOrd ered By: Krystin Jurado on 08-21-2024 Triglyceride [Mass/Vol] 250 mg/dL High <199 [facility] Comment on above: The drugs N-Acetylcy steine and Metamizole may falsely depress this assay. Normal range: <150 mg/dLBorderline High: 150-199 mg/dLHigh: 200-499 mg/dLVery High: >500 mg/dL Vitamin B12 ser/plasOrdered By: Krystin Jurado on 08-21-2024 Cobalamin (Vitamin B12) [Mass/Vol] 620 pg/mL 180-914 [facility] Vitamin D, 25-hydroxyOrdered By: Krystin Jurado on 08-21-2024 Vitamin D 25-Hydroxy 21.4 ng/mL Low 30-100 [facility] Comment on above: Vitamin D StatusDefi ciency: <20 ng/mL (50nmol/L)Insufficiency: 20-30 ng/mL (50-75 nmol/L)Sufficiency: 30-100 ng/mL (75-250 nmol/L)Toxicity: >100 ng/mL (>250 nmol/L) Urine Cultureon 06-09-2024 [facility] Presumptive E. coli [place] Count >100,000 Presumptive E. coli: REACTION Ampicillin Islt LUZ >=32 Ampicillin+Sulbac Islt LUZ 4 S Cefepime Islt LUZ <=0.12 S cefTRIAXone Islt LUZ <=0.25 S Ciprofloxacin Islt LUZ <=0.06 S B-Lactamase Extended Susc Islt NEG Gentamicin Islt LUZ <=1 S levoFLOXacin Islt LUZ <=0.12 S Meropenem Islt LUZ <=0.25 S Nitrofurantoin Islt LUZ <=16 S Pip+Tazo Islt LUZ <=4 S TMP SMX Islt LUZ <=20 S Normal [facility] Comment on above: Performed By: #### M 100.0688 #### [facility] [address] [place], [address] Laboratory - Chemistry and C hemistry - challengeon 06-07-2024 Bilirubin Ql (U) Small (1+) [facility] Glucose Ql (U) Negative [facility] Ketones Ql (U) Negative [facility] Specific gravity (U) [Rel density] 1.005 [facility] Urobilinogen (U) [Mass/Vol] 0.4678321 mg/dL [facility] Laboratory - Hematology and Cell countson 06-07-2024 Hemoglobin Ql (U) Small [facility] Laboratory - Specimen inform ationon 06-07-2024 Clarity (U) Clear [facility] Color (U) Nevin [facility] Laboratory - Urinalysison Nitrite Ql (U) Negative [facility] Protein Ql (U) Negative [facility] No Panel Informationon 06-07 Urine Leukocytes Positive [facility] Urine Non-Hemolyzed Blood [facility] Urgent Care Visit Reporton 0 06-07-2024 Urgent Care Visit Report [facility] [address], [address] [place], [place] [address] OFFICE VISIT Date of Service: 06/07/24 MR#: [id number] Acct: [id number] Name: CHUY CERVANTES Rep #: [id number] : 1990 Provider: IRWIN Martin Age/Sex: 34/M Location: [facility] Status: Signed Intake Vital Signs 02/21/22 10:44 06/07/24 10:33 Height 6 ft 2 in 6 ft 2 in Weight: 253 lb BMI 32.5 BP 134/84 H Blood Pressure Location Lt brachial Position Sitting Respiration 12 Pulse 71 Pulse Source Monitor Temp 98.1 F Temp Source Temporal Pulse Oximetry (%) 98 Oxygen Delivery Method room air Intake Visit Reasons: concern for uti Chief Complaint: dysuria x 1 wk Accompanied by: Self Is patient in pain?: No Allergies No Known Allergies Allergy (Unverified 06/07/24 10:31) Medications ???Medication ???Instructions ???Recorded ???Confirmed ???Type ciprofloxacin HCl 500 mg tablet 500 mg PO Q12H 7 days #14 tabs 06/07/24 06/07/24 Rx (Cipro) PFSH Medical History COVID Tonsillitis Bone fracture Social History adopted: No household members: none housing: condominium current occupational status: employed 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 pets and animals: No leisure activities: sports and other history of recent travel: No sexually active: Yes Smoking Status: Never smoker alcohol intake: current details: beer or wine weekly substance use type: does not use diet: other well-balanced diet: daily or most days caffeine: Yes eating out: 1-3 times/week during the past year weight has: decreased > 10 lbs what type of physical activity do you participate in: weight training and other details: cardio seatbelt use: always do you feel safe at home: Yes HPI HPI Chief Complaint: dysuria x 1 wk Details: CHUY CERVANTES, is a 34 M who presents to the office today for complaint of dysuria for the past week. Patient denies hematuria or loss of bladder control. No fever, chills, sweats. No nausea, vomiting or diarrhea. No pelvic or abdominal pain. Patient does state having unprotected sex however is with a monogamous partner. No other associated symptoms or alleviating/aggravati ng factors. ROS Const Constitutional: No other (6 system ROS completed with pertinent findings in the HPI otherwise normal.) Exam Const General: cooperative and healthy appearing Resp Effort Inspection: normal respiratory effort Auscultation: Bilateral: Clear to Auscultation Cardio Rate: regular rate Rhythm: regular rhythm GI Auscultation: normal bowel sounds General: No CVA tenderness Psych Appearance: grossly normal Mental Status: mental status grossly normal Results POC Urinalysis Dip (Clinic) Office Urine Color Nevin Last Edit by IRWIN Sewell on 06/07/24 11:08 Office Urine Clarity Clear Last Edit by IRWIN Sewell on 06/07/24 11:08 Office Urine Glucose Negative Last Edit by IRWIN Sewell on 06/07/24 11:08 Office Urine Ketones Negative Last Edit by IRWIN Sewell on 06/07/24 11:08 Off Ur Spec Dickens 1.005 Last Edit by IRWIN Sewlel on 06/07/24 11:08 Office Urine pH Last Edit by IRWIN Sewell on 06/07/24 11:08 Office Urine Bilirubin Small (1+) Last Edit by IRWIN Sewell on 06/07/24 11:08 Office Urine Urobilinogen 0.2 mg/dL Last Edit by IRWIN Sewell on 06/07/24 11:08 Office Urine Blood Small Last Edit by IRWIN Sewell on 06/07/24 11:08 Office Urine Blood Hemolyzed NA Last Edit by IRWIN Sewell on 06/07/24 11:08 Office Urine Protein Negative Last Edit by IRWIN Sewell on 06/07/24 11:08 Office Urine Nitrate Negative Last Edit by IRWIN Sewell on 06/07/24 11:08 Off Ur Leukocytes Positive Last Edit by IRWIN Sewell on 06/07/24 11:08 Coding Level of Care Code Off vis,new,level 3 Diagnoses Dysuria R30.0 Assessment and Plan Assessment and Plan (1) Dysuria: Status: Acute Orders: Orders POC Urinalysis Dip (Clinic) Today R30.0 - Dysuria Culture, Urine Today R30.0 - Dysuria Medications: New ciprofloxacin HCl (Cipro) 500 mg PO Q12H 7 days 14 tabs 0RF Plan Cipro as prescribed today. Encouraged to get plenty of rest, drink lots of clear liquids, and use Tylenol or Ibuprofen (unless contraindicated) for fever and comfort. Patient also educated on other symptomatic management techniques. To be seen in 7-10 days if no improvement; sooner if worsening of symptoms. Patient advised of potential red flags and when appropriate to report to the ED. Patient verbalized understanding and agreement with all the above. 06/07/24 1109 Date Kade (more content not included)... Normal [facility] Urine cultureOrdered By: Oscar Herrera on 06-07-2024 Bacteria identified Cx Nom (U) Presumptive E. coli Abnormal [facility] Absolute lymphocyte counton 02-21-2022 Lymphocytes Auto (Unsp spec) [#/Vol] 1.58 10*3/uL 0.83-4.51 [facility] Work Phone: Basophil percentageon 2021 Basophils/100 WBC (Bld) 0.5 % 0-1 [facility] Work Phone: Bilirubin [Mass/Vol] 0.70 mg/dL 0.20-1.00 [facility] Work Phone: [phone] Comment on above: For patients on eltr ombopag therapy, use of Dimension [place] TBIL is not recommended. Chloride [Moles/Vol] 105 mmol/L 98-107 [facility] Work Phone: Cholesterol [Mass/Vol] 218 mg/dL <200 [facility] Work Phone: [phone] Comment on above: <200 mg/dL Desirable 200-240 mg/dL Borderline >240 mg/dL High Risk Eosinophils/100 WBC (Bld) 3.1 % 0-5 [facility] Work Phone: Glucose [Mass/Vol] 86 mg/dL 74-106 [facility] Work Phone: [phone] Neutrophils (Bld) [#/Vol] 4.1 10*3/uL 2.0-7.7 [facility] Work Phone: [phone] Neutrophils/100 WBC (Bld) 63.5 % 47-70 [facility] Work Phone: Potassium [Moles/Vol] 4.4 mmol/L 3.5-5.1 [facility] Work Phone: [phone] Protein [Mass/Vol] 7.7 g/dL 6.4-8.2 [facility] Work Phone: Sodium [Moles/Vol] 140 mmol/L 136-145 [facility] Work Phone: Triglyceride [Mass/Vol] 132 mg/dL <199 [facility] Work Phone: Comment on above: The drugs N-Acetylcy steine and Metamizole may falsely depress this assay.Serum Triglycerides Reference Interval Normal <150 mg/dL Borderline high 150 - 199 mg/dL High 200 - 499 mg/dL Very High > or = 500 mg/dL WBC (Bld) [#/Vol] 6.4 10*3/uL 4.4-11.0 [facility] Work Phone: Blood erythrocytes count (nu mber/volume)on 02-21-2022 RBC (Bld) [#/Vol] 5.14 10*6/uL 4.6-6.2 [facility] Work Phone: Blood hemoglobin measurement (mass/volume)on 02-21-2022 Hemoglobin (Bld) [Mass/Vol] 15.3 g/dL 13.0-16.5 [facility] Work Phone: Blood lymphocytes/100 leukoc yteson 02-21-2022 Lymphocytes/100 WBC (Bld) 24.6 % 19-41 [facility] Work Phone: Blood monocytes/100 leukocyt eson 02-21-2022 Monocytes/100 WBC (Bld) 7.8 % 0-10 [facility] Work Phone: Blood platelet mean volumeon 02-21-2022 Platelet mean volume (Bld) [Entitic vol] 9.6 fL 6.2-12.0 [facility] Work Phone: Determination of erythrocyte mean corpuscular volume (MCV)on 02-21-2022 MCV (RBC) [Entitic vol] 89.3 fL 80-94 [facility] Work Phone: Hematocrit Auto (Bld) [Volum e fraction]on 02-21-2022 Hematocrit (Bld) [Volume fraction] 45.9 % 40-54 [facility] Work Phone: Laboratory - Chemistry and C hemistry - challengeon 02-21-2022 ALP [Catalytic activity/Vol] 76 U/L 45-117 [facility] Work Phone: ALT [Catalytic activity/Vol] 37 U/L 16-61 [facility] Work Phone: [phone] CO2 [Moles/Vol] 29.0 mmol/L 21.0-32.0 [facility] Work Phone: Globulin (S) [Mass/Vol] 3.3 g/dL 2.2-4.2 [facility] Work Phone: Urea nitrogen/Creatinine [Mass ratio] 12.5 mg/mg 10-20 [facility] Work Phone: Laboratory - Hematology and Cell countson 02-21-2022 Erythrocyte distribution width (RBC) [Entitic vol] 41.5 fL 35.1-43.9 [facility] Work Phone: Erythrocyte distribution width (RBC) [Ratio] 12.6 % 11.6-14.6 [facility] Work Phone: Immature granulocytes/100 WBC (Bld) 0.500 % 0.0-0.9 [facility] Work Phone: Comment on above: IG% - Immature Granu locytes (promyelocytes, myelocytes and metamyelocytes) > 1% indicates that a LEFT SHIFT is Present. MCH (RBC) [Entitic mass] 29.8 pg 27.0-32.0 [facility] Work Phone: Nucleated RBC/100 WBC (Bld) [Ratio] 0 % 0-5 [facility] Work Phone: MCHC Auto (RBC) [Mass/Vol]on 02-21-2022 MCHC (RBC) [Mass/Vol] 33.3 g/dL 32-36 [facility] Work [facility]: No Panel Informationon 02-21 Estimated GFR (MDRD) Amer 116 mL/min >60 [facility] Work Phone: Comment on above: GFR Calc Estimated GFR (MDRD) Non-Af Amer 96 mL/min >60 [facility] Work Phone: Comment on above: Non- GFR Calc Platelets bldon 02-21-2022 Platelets (Bld) [#/Vol] 261 10*3/uL 150-450 [facility] Work Phone: Serum or plasma albumin tobin urement (mass/volume)on 02-21-2022 Albumin [Mass/Vol] 4.4 g/dL 3.2-5.0 [facility] Work Phone: Serum or plasma albumin/glob ulin mass ratioon 02-21-2022 Albumin/Globulin [Mass ratio] 1.3 {ratio} 0.9-2.4 [facility] Work Phone: Serum or plasma calcium tobin urement (mass/volume)on 02-21-2022 Calcium [Mass/Vol] 9.4 mg/dL 8.5-10.1 [facility] Work Phone: Serum or plasma cholesterol in HDL measurement (mass/volume)on 02-21-2022 Cholesterol in HDL [Mass/Vol] 47 mg/dL >40 [facility] Work Phone: Comment on above: The drugs N-Acetylcy steine and Metamizole may falsely depress this assay. Reference Range HDL <40 mg/dL Low HDL Cholesterol HDL >or= 60 mg/dL High HDL Cholesterol Serum or plasma cholesterol in VLDL measurement (mass/volume)on 02-21-2022 Cholesterol in VLDL [Mass/Vol] 26 mg/dL 5-40 [facility] Work Phone: Serum or plasma creatinine m easurement (mass/volume)on 02-21-2022 Creatinine [Mass/Vol] 0.96 mg/dL 0.70-1.30 [facility] Work Phone: Comment on above: The validity of the calculated GFR & GFRAA in patients over 70 years has not been determined. Clinical correlation is essential. Serum or plasma low density lipoprotein (LDL) cholesterol measurement (mass/volume)on 02-21-2022 Cholesterol in LDL [Mass/Vol] 145 mg/dL 0-130 [facility] Work Phone: Serum or plasma urea nitroge n measurement (mass/volume)on 02-21-2022 Urea nitrogen [Mass/Vol] 12 mg/dL 7-18 [facility] Work Phone: Thin prep Papanicolaou smear with manual screeningon 02-21-2022 Thin prep Papanicolaou smear with manual screening 19 U/L 15-37 [facility] Work Phone: Thin prep Papanicolaou smear with manual screening 6 5-15 [facility] Work Phone: Whole blood hemoglobin A1c/t otal hemoglobin ratio (mass fraction)on 02-21-2022 HbA1c (Bld) [Mass fraction] 5.1 % 3.8-5.6 [facility] Work Phone: Comment on above: Normal < 5.7 % Predi abetic 5.7 - 6.4 % Diabetic >or= 6.5 % Please note range changes. Vital Signs Date Time Vital Sign Value Performing Clinician Faci lity 08-21-2024 10:26-0400 Body height 187.[address] Krystin Jurado MD Work Phone: [facility] 08-21-2024 10:26-0400 Body mass index (BMI) [Ratio] 32.8 kg/m2 Dr. Krystin Jurado MD Work Phone: [facility] 08-21-2024 10:26-0400 Body temperature 98.2 [degF] Dr. Krystin Jurado MD Work Phone: [facility] 08-21-2024 10:26-0400 Body weight 115.[address] Krystin Jurado MD Work Phone: [facility] 08-21-2024 10:26-0400 Diastolic blood pressure 89 mm[Hg] Dr. Krystin Jurado MD Work Phone: [facility] 08-21-2024 10:26-0400 Heart rate 64 /min Dr. Krystin Jurado MD Work Phone: [facility] 08-21-2024 10:26-0400 Respiratory rate 16 /min Dr. Krystin Jurado MD Work Phone: [facility] 08-21-2024 10:26-0400 SaO2% (BldA) [Mass fraction] 96 % Dr. Krystin Jurado MD Work Phone: [facility] 08-21-2024 10:26-0400 Systolic blood pressure 131 mm[Hg] Dr. Krystin Jurado MD Work Phone: [facility] 06-07-2024 10:33-0500 Body mass index (BMI) [Ratio] 32.5 kg/m2 Dr. Krystin Jurado MD Work Phone: [facility] 06-07-2024 10:33-0500 Body temperature 98.1 [degF] Dr. Krystin Jurado MD Work Phone: [facility] 06-07-2024 10:33-0500 Body weight 114.[address] Krystin Jurado MD Work Phone: [facility] 06-07-2024 10:33-0500 Diastolic blood pressure 84 mm[Hg] Dr. Krystin Jurado MD Work Phone: [facility] 06-07-2024 10:33-0500 Heart rate 71 /min Dr. Krystin Jurado MD Work Phone: [facility] 06-07-2024 10:33-0500 Respiratory rate 12 /min Dr. Krystin Jurado MD Work Phone: [facility] 06-07-2024 10:33-0500 SaO2% (BldA) [Mass fraction] 98 % Dr. Krystin Jurado MD Work Phone: [facility] 06-07-2024 10:33-0500 Systolic blood pressure 134 mm[Hg] Dr. Krystin Jurado MD Work Phone: [facility] 02-21-2022 10:44-0400 Body height 187.[address] Krystin Jurado Work Phone: [facility] Work Phone: 02-21-2022 10:44-0400 Body mass index (BMI) [Ratio] 29.5 kg/m2 Dr. Krystin Jurado Work Phone: [facility] Work Phone: 02-21-2022 10:44-0400 Body temperature 97 [degF] Dr. Krystin Jurado Work Phone: [facility] Work Phone: 02-21-2022 10:44-0400 Body weight 104.[address] Krystin Jurado Work Phone: [facility] Work Phone: 02-21-2022 10:44-0400 Diastolic blood pressure 82 mm[Hg] Dr. Krystin Jurado Work Phone: [facility] Work Phone: 02-21-2022 10:44-0400 Heart rate 84 /min Dr. Krystin Jurado Work Phone: [facility] Work Phone: 02-21-2022 10:44-0400 Respiratory rate 16 /min Dr. Krystin Jurado Work Phone: [facility] Work Phone: 02-21-2022 10:44-0400 SaO2% (BldA) [Mass fraction] 95 % Dr. Krystin Jurado Work Phone: [facility] Work Phone: 02-21-2022 10:44-0400 Systolic blood pressure 133 mm[Hg] Dr. Krystin Jurado Work Phone: [facility] Work Phone: Encounters Encounter Date Encounter Type Care Provider Facility Start: 02-11-2025 End: 02-11-[address] Krystin Jurado MD Work Phone: -[facility]atory [facility] Start: 02-11-2025 End: 02-11-[address] Krystin Jurado MD -[facility] Start: 02-11-2025 End: 02-11-2025 ambulatory [facility] Facility:[facility] Start: 09-24-2024 End: 09-24-2024 ambulatory [facility] Facility:[facility] Start: 08-28-2024 Encounter for genera l adult medical examination without abnormal findings [facility] Start: 08-21-2024 End: 08-21-[address] Krystin Jurado MD Work Phone: [facility] Work Phone: Start: 08-21-2024 End: 08-21-[address] Krystin Jurado MD -Laboratory, [facility] Start: 08-21-2024 End: 08-21-[address] Krystin Jurado MD -[facility] Work Phone: Start: 08-21-2024 End: 08-21-[address] Krystin Jruado MD [facility] Start: 08-21-2024 End: 08-21-2024 ambulatory [facility] Facility:[facility] Start: 08-21-2024 End: 08-21-2024 ambulatory [facility] Facility:[facility] Start: 06-12-2024 ambulatory [facility] Facility :[facility] Start: 06-07-2024 End: 06-07-2024 Patient encounter procedure Kade GAYLE -Laboratory, Spec[facility] Work Phone: Start: 06-07-2024 End: 06-07-2024 Patient encounter procedure Kade GAYLE -[facility] Work Phone: Start: 06-07-2024 End: 06-07-2024 ambulatory Krystin Jurado Facility:[facility] Start: 06-07-2024 End: 06-07-2024 ambulatory Krystingeraldo Jurado Facility:[facility] Start: 02-21-2022 End: 02-21-[address] Krystin Jurado Work Phone: [facility] Work Phone: Start: 02-21-2022 End: 02-21-[address] Krystin Jurado Work Phone: [facility]-Laboratory Start: 02-21-[address] Val Jurado Work Phone: [facility] Start: 02-21-2022 End: 02-21-2022 Encounter for general adult medical examination without abnormal findings Dr. Krystin Jurado Work Phone: [facility] Start: 02-21-2022 End: 02-21-[address] Krystin Jurado Work Phone: [facility] Procedures Date Procedure Procedure Detail Performing Clinician Start: 02-11-2025 Vitamin D, 25-hydrox y measurement Dr. Krystin Jurado MD Work Phone: Comment on above: Vitamin D StatusDefi ciency: <20 ng/mL (50nmol/L)Insufficiency: 20-30 ng/mL (50-75 nmol/L)Sufficiency: 30-100 ng/mL (75-250 nmol/L)Toxicity: >100 ng/mL (>250 nmol/L) Start: 06-07-[address] Krystin Jurado MD Work Phone: Plan of Treatment Date Care Activity Detail Author Start: 08-21-2024 Patient referral [facility] Work Phone: Patient referral [facility] Work Phone: Payers Date Payer Category Payer Unknown [id number] 2024 Self-pay 2024 Unknown [id number] Unknown [id number] 2.16.8 [id number] Unknown [id number] 2.16.8 [id number] Unknown [id number] 2.16.8 [id number] Unknown [id number] 2.16.8 [id number] Unknown [id number] 2.16.8 [id number] Unknown [id number] 2.16.8 [id number] Unknown [id number] 2.16.8 [id number] Social History Date Type Detail Facility Start: [facility] Work Phone: Start: 1990 Sex Assigned At Male [facility] Start: 02-21-2022 [facility] (finding[facility] Start: 08-28-2024 Sex Male (finding) [facility] Sex Male [facility] Evaluation note 06-07-2024 Note Date & Type Note Facility 06-07-2024 Evaluation note Diagnosis Onset Date Resolution Dysuria acute June 07 10:28am Encounter for wellness examination in adult acute August 21, 2024 10:13am Insulin resistance acute August 21, 2024 10:13am Low back pain acute August 21, 2024 10:13am [facility] Work Phone: Evaluation note Note Date & Type Note Facility Evaluation note Diagnosis Onset Date Encounter for wellness examination in adult acute [facility] Work Phone: Evaluation note Note Date & Type Note Facility Evaluation note No assessment information availa ble [facility] Work Phone: Reason for referral (narrative) Note Date & Type Note Facility Reason for referral (narrative) No reason for referral information available [facility] Work Phone: Chief Complaint and Reason for Visit Chief Complaint RE RECORDING MIXER, EST. CARE, PT NE EDS NPP Reason for Visit Encounter for wellne ss examination in adult Chief Complaint Admit Date concern for uti June 07, 2024 10 :28am Annual/Physical August 21, 2024 10: 13am Reason for Visit Admit Date Dysuria June 07, 2024 10 :28am Encounter for wellness examination in ad ult August 21, 2024 10:13am Insulin resistance August 21, 2024 10: 13am Low back pain August 21, 2024 10: 13am Summary Purpose Family History No Family History Records Found Advance Directives No Advanced Directives Records Found Additional Source Comments Goals (unrecognized section and content) Goals may be documented in a n alternate sectionGoals may be documented in an alternate sectionGoals may be documented in an alternate sectionGoals may be documented in an alternate section Care Teams (unrecognized sec tion and content) Team Status: Active Member Role Status Dates Dr. Krystin Jurado MD Primary Care Provider Active Team Status: Inactive Member Role Status Dates Dr. Krystin Jurado MD Primary Care Provider Active Start: June 07, 2024 End: June 07, 2024 Dr. Krystin Jurado MD Referring Provider Active Start: June 07, 2024 End: June 07, 2024 IRWIN Sewell Attending Provider Active Sta rt: June 07, 2024 End: June 07, 2024 Team Status: Inactive Member Role Status Dates Dr. Krystin Jurado MD Primary Care Provider Active Start: June 07, 2024 End: June 07, 2024 IRWIN Sewell Attending Provider Active Sta rt: June 07, 2024 End: June 07, 2024 IRWIN Sewell Referring Provider Active Sta rt: June 07, 2024 End: June 07, 2024 Team Status: Inactive Member Role Status Dates Dr. Krystin Jurado MD Primary Care Provider Active Start: August 21, 2024 End: August 21, 2024 Dr. Krystin Jurado MD Attending Provider Active Start: August 21, 2024 End: August 21, 2024 Team Status: Inactive Member Role Status Dates Dr. Krystin Jurado MD Primary Care Provider Active Start: August 21, 2024 End: August 21, 2024 Dr. Krystin Jurado MD Attending Provider Active Start: August 21, 2024 End: August 21, 2024 Dr. Krystin Jurado MD Referring Provider Active Start: August 21, 2024 End: August 21, 2024 Team Status: Active Member Role/Relationship Status Dates Dr. Krystin Jurado MD Primary care physician Active Team Status: Active Member Role/Relationship Status Dates Dr. Krystin Jurado MD Primary care physician Active Start: February 11, 2025 Dr. Krystin Jurado MD Attending physician Active Start: February 11, 2025 Dr. Krystin Jurado MD Referring Provider Active Start: February 11, 2025 Team Status: Inactive Member Role/Relationship Status Dates Dr. Krystin Jurado MD Primary care physician Active Start: February 11, 2025 End: February 11, 2025 Dr. Krystin Jurado MD Attending physician Active Start: February 11, 2025 End: February 11, 2025 Dr. Krystin Jurado MD Referring Provider Active Start: February 11, 2025 End: February 11, 2025 (unrecognized sect ion and content) No Status Records Found INFORMATION SOURCE (unrecogn ized section and content) DATE CREATED AUTHOR 02/20/2025 [facility] FOR RECORDS PERTAINING TO PATIENTS WHO ARE OR HAVE BEEN ENROLLED IN A CHEMICAL DEPENDENCY/SUBSTANCEABUSE PROGRAM, SOME INFORMATION MAY BE OMITTED. This clinical summary was aggregated from multiple sources. Caution should be exercised in using it in the provision of clinical care. This summary normalizes information from multiple sources, and as a consequence, information in this document may materially change the coding, format and clinical context of patient data. In addition, data may be omitted in some cases. CLINICAL DECISIONS SHOULD BE BASED ON THE PRIMARY CLINICAL RECORDS. [employer] provides no warranty or guarantee of the accuracy or completeness of information in this document.
[2025-05-09 17:56] LABS: Hematocrit 43.9 % (40-54); Hemoglobin 14.5 g/dL (13.0-16.5); Immature Granulocytes Count 0.020 X10^3/uL (0.0-0.0); Mean Corp Hgb Conc 33.0 g/dL (32-36); Mean Corpuscular Volume 88.9 fL (80-94); Mean Platelet Vol. 10.0 fl (6.2-12.0); NRBC Flagged by Analyzer 0 % (0-5); Platelet Count 293 K/mm3 (150-450); RBC Distribution Width CV 12.7 % (11.6-14.6); RBC Distribution Width SD 41.4 fl (35.1-43.9); Red Blood Count 4.94 M/mm3 (4.6-6.2); White Blood Count 8.0 K/mm3 (4.4-11.0)
[2025-05-09 18:17] LABS: AST(SGOT) 24 U/L (<=37); Alanine Aminotransfer ALT/SGPT 28 U/L (<=46); Albumin, Serum 4.9 g/dL (3.5-5.0); Alkaline Phosphatase 69 U/L (40-129); Anion Gap 13 (5-15); BUN 12 mg/dL (4-19); BUN/Creat Ratio 10.9 RATIO (10-20); Calcium,Total 10.2 mg/dL (7.6-11.0); Carbon Dioxide 25.8 mmol/L (21.0-32.0); Chloride 102 mmol/L (98-108); Cholesterol 279 mg/dL (<=200); Globulin 2.7 g/dL (2.2-4.2); Glucose 93 mg/dL (70-99); Low Density Lipoprotein Calc. 211 mg/dL; Potassium 4.3 mmol/L (3.3-5.1); Triglycerides 119 mg/dL; Very Low Density Lipoprotein 24 mg/dL (5-40); Vitamin B12 655 pg/mL (180-914); Vitamin D,25 Hydroxy 26.5 ng/mL (30-100); cholesterol:hdl ratio screen 5.99
== END | disposition home or self-care (01) ==
LOC: MTLAB 16:21
PROVIDERS: PCP Internal Medicine; Referring Provider Internal Medicine; Visit Provider Internal Medicine
DX: Z00.00 Encounter for general adult medical examination without abnormal findings (principal); K90.41 Non-celiac gluten sensitivity; E88.819 Insulin resistance, unspecified
CPT/HCPCS: 36415; 80053; 80061; 82306; 82607; 83036; 83516; 84443; 85025